=== PATIENT | male | born 1975 | race Caucasian/White ===

== ENCOUNTER 2022-05-16 21:51 | Emergency (ER) | payer OTHER ==
[2022-05-17 02:36] LABS: HEMOGLOBIN 15.4 gm/dl (14.0-17.5); RED BLOOD COUNT 5.2 M/UL (4.20-5.50); WHITE BLOOD COUNT 7.4 K/UL (4.5-11.0)
[2022-05-17 03:12] LABS: BUN/CREATININE RATIO 11 (0-10)
[2022-05-17] MEDS ORDERED: AMOXICILLIN500 M1 PO (06:11)
== END 2022-05-17 06:15 | disposition home or self-care (01) ==
LOC: ER1 21:51
DX: R07.2 Precordial pain (principal); K02.9 Dental caries, unspecified; E11.9 Type 2 diabetes mellitus without complications; E78.5 Hyperlipidemia, unspecified; Z79.01 Long term (current) use of anticoagulants; Z86.711 Personal history of pulmonary embolism
CPT/HCPCS: 71045; 80053; 82550; 82553; 84484; 85025; 85379; 93005; 99285